=== PATIENT | male | born 1995 | race Caucasian/White ===

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

== ENCOUNTER 2021-11-26 20:25 | Day surgery (SDC) | payer OTHER, BC ==
[~2021-11-26] VITALS: Ht 193 cm; Wt 106.0 kg
[~2021-11-26 20:25] MED LIST changes: +AMOX TR-K CLV1 EAC1 PO; +HYCET 7.5 MG-3473 ML PO; +NORCO 5-325 TA1 EACH PO
--- NOTE | 2021-11-26 23:07 | NUR ---
11/26/21 2307 Rossy Spence 2256-PATIENT ARRIVED TO PACU AWAKE, SR. IVF INFUSING. DENIES PAIN OR NAUSEA. HOB ELEVATED. PER DR. FLOYD AND MILL WORK PATIENT TO STAY FOR 1 HR AND MEET CRITERIA TO DC HOME. 2307-PATIENT AWAKE DENIES PAIN OR NAUSEA. RA 98% RR EVEN.
--- NOTE | 2021-12-01 14:14 | HP ---
[facility] [address] [facility] [place], [place] [address] Signed ADMISSION DATE: 11/26/2021 TIME: 10 p.m. PROBLEM: Food impaction of the esophagus. HISTORY OF PRESENT ILLNESS: This 26-year-old white man presented to the emergency room having been eating a steak dinner at approximately 6 p.m. and noting sudden and acute inability to swallow with impaction of food in the esophagus. The patient has had some episodes to a lesser degree in the past, but never required medical intervention for this. He presented to the emergency room, was evaluated by Dr. Lockett. His initial thought was the food was impacted in the region of the suprasternal notch. He had no associated hematemesis, only persistent hypersalivation. A CT scan was ordered by Dr. Lockett of the neck. Images were done, but interpretation has yet to be read due to numerous logistical issues of the Radiology Department currently. The patient continues to have some hypersalivation and although no significant chest pain. He does feel that there is still obstruction of the esophagus. PAST MEDICAL HISTORY: Rather unremarkable, other than hay fever and some allergies to some food. REVIEW OF SYSTEMS: He denies any shortness of breath or actual chest pain. He does have excessive salivation currently. PHYSICAL EXAMINATION: GENERAL: A tall, fit, and healthy-appearing white man, who looks to be nontoxic and reasonably comfortable at this time. NECK: Shows no thyromegaly or cervical adenopathy and he has no crepitus. CHEST: Clear. HEART: Regular without murmur. LABORATORY STUDIES: Show a negative coronavirus test. White count is 9.0, hematocrit 46.5, platelets 233,000. Electrolytes are normal, creatinine 1.01. Electronically Signed By: DASHAWN FLOYD MD 12/01/21 1414 PATIENT NAME: JORDIN ADAIR HISTORY AND PHYSICAL DATE OF : [birth year] REPORT #: [id number] PHYSICIAN: DASHAWN FLOYD MD PCP: NO PRIMARY CARE PHYSICIAN REPORT IS CONFIDENTIAL AND NOT TO BE RELEASED WITHOUT AUTHORIZATION [facility] [address] [place], [place] [address] Signed I have reviewed his CT scan images of the neck, trachea appears to be midline. I do not certainly see the food foreign body, but this is an incomplete CT scan, as it has only cervical esophagus and does not completely go to the abdomen. ASSESSMENT AND PLAN: He has clinical findings of food impaction, probably steak, as reported at his evening meal. He has had obstruction for at least 4 hours clinically speaking. His stomach should largely have cleared by now even if the impacted food has not. I have recommended the patient and his mother, who accompanies him the plan for upper endoscopy to remove the impacted food or push it through, whichever is safest and able to be done. Additionally, biopsies will be taken, in particular to assess for eosinophilic esophagitis that is, as it is unlikely, this represents a stricture per se. The patient does not really have "heartburn," that he is aware of though, given his young age, he may not know fully just what symptoms would correspond to reflux or heartburn otherwise. The risks of bleeding, infection, perforation, and of course failure to fully remove the foreign body were reviewed in detail. He understands and wished to proceed. Dashawn Floyd MD JM/MODL /[id number] cc: Dr. Lockett Copies: ~ Electronically Signed By: DASHAWN FLOYD MD 12/01/21 1414 PATIENT NAME: JORDIN ADAIR HISTORY AND PHYSICAL DATE OF : [birth year] REPORT #: [id number] PHYSICIAN: DASHAWN FLOYD MD PCP: NO PRIMARY CARE PHYSICIAN REPORT IS CONFIDENTIAL AND NOT TO BE RELEASED WITHOUT AUTHORIZATION
--- NOTE | 2021-12-01 14:14 | OR ---
[facility] [address] [place], [place] [address] Signed DATE OF OPERATION: 11/26/2021 SURGEON: Dashawn Floyd MD TIME: 11 p.m. PREOPERATIVE DIAGNOSIS: Food impaction in esophagus (steak). POSTOPERATIVE DIAGNOSES: 1. Food impaction esophagus (steak). 2. Small polyps x2 proximal esophagus. 3. Felinization of esophagus consistent with the eosinophilic esophagitis. PROCEDURES: 1. Esophagogastroduodenoscopy with extraction of impacted food, foreign body. 2. Esophageal biopsy. 3. Excision of two small proximal esophageal polyps. ANESTHESIA: General endotracheal, Serge Mccauley CRNA. INDICATION: This 26-year-old white man presented to the emergency room, was evaluated by Dr. Lockett. At 6 p.m., he was eating steak and steak became impacted in the esophagus. Hypersalivation was noted. He has had dysphagia problems in the past, but no actual gastroesophageal reflux that he is aware of. The patient does have hay fever and other food allergies. He has been in the emergency room for several hours and a CT scan of the neck was ordered by Dr. Lockett. He clinically continues to have esophageal obstruction based on hypersalivation and so forth. He has been given IV fluids and is now to undergo upper endoscopy to explant or otherwise remove the impacted steak from the esophagus. The patient and his mother understand the risks of bleeding, infection, and perforation related to this procedure and wished to proceed. FINDINGS: Indeed there was impacted food in the fiw-um-ooxnjs esophagus. A combination of techniques were used to fully clear the esophagus, most dominantly three-prong grasper and subsequently Dexter Net. This allowed for explantation of extremely large bolus of steak about the size of a small mouth. There was distal esophagitis and midesophageal Electronically Signed By: DASHAWN FLOYD MD 12/01/21 1414 PATIENT NAME: JORDIN ADAIR OPERATIVE REPORT DATE OF : [birth year] REPORT #: [id number] PHYSICIAN: DASHAWN FLOYD MD PCP: NO PRIMARY CARE PHYSICIAN REPORT IS CONFIDENTIAL AND NOT TO BE RELEASED WITHOUT AUTHORIZATION [facility] [address] [place], [place] [address] Signed concentric rings (felinization) and I suspect strongly that his primary underlying diagnosis may well be eosinophilic esophagitis. Stomach and duodenum were normal. Good visualization of the bowel was not forthcoming in. DESCRIPTION OF PROCEDURE: The patient was brought to the endoscopy suite and placed in the supine position and given a general endotracheal anesthetic on the basis of increased hazard for airway problems with explantation of foreign body. In the supine position, a bite block was placed and using flexible Olympus upper endoscope, the esophagus was then intubated without problem. In the iwc-ad-[id number] part of the esophagus was an impacted food bolus consistent with steak as previously noted. Initial attempts at removal with a three-prong grasper; largely this only was able to morcellate the impacted food and not explanted fully on its own. On that basis, a Dexter Net was obtained and with various manipulations, portions of the impacted food was episodically removed. Re-intubation occurred several times. Ultimately, the bulk of the meat could be grasped with the snare, as it could not be pushed forward and it was explanted in total. The size of the impacted bolus was the size of a small mouth. Reintroduction of the scope allowed for good visualization of the esophagus and easy passage to the stomach itself. Rugal folds were normal, as was the pylorus. The scope was passed through into the duodenum, which was normal. Scope was withdrawn and the inflamed distal esophagus showed no evidence of Henry epithelium or actual neoplasm. Biopsies were taken of the distal esophagus. Further withdrawal showed felinization of the mid esophagus. Multiple biopsies were taken there as well. In the more proximal esophagus at about 22 cm were two small mucosal polyps, benign in appearance, but both excised with cold morcellation technique. Further withdrawal showed no other abnormalities. The scope was removed and the patient was subsequently and eventually extubated and taken to recovery room in good condition. CONCLUDING DIAGNOSIS: Food impaction (steak) in dfa-pa-hnlpia esophagus, most likely related to eosinophilic esophagitis. PLAN: We will initiate eosinophilic esophagitis treatment to include PPI medication daily as well as Flonase 2 puffs swallowed b.i.d. for 3 weeks with 1 week holiday (so as to avoid yeast esophagitis). Continuous use of PPI medication is recommended even on those drug holidays. He will see me back in the office in 4 to 6 weeks in order to review his progress and review his pathology reports. He will maintain a mechanical soft diet for the next 48 hours. Electronically Signed By: DASHAWN FLOYD MD 12/01/21 1414 PATIENT NAME: JORDIN ADAIR OPERATIVE REPORT DATE OF : [birth year] REPORT #: [id number] PHYSICIAN: DASHAWN FLOYD MD PCP: NO PRIMARY CARE PHYSICIAN REPORT IS CONFIDENTIAL AND NOT TO BE RELEASED WITHOUT AUTHORIZATION [address] [address] Signed MD MATTHEW Cantor/MODL /[id number] cc: Dr. Lockett Copies: ~ Electronically Signed By: DASHAWN FLOYD MD 12/01/21 1414 PATIENT NAME: MANAJORDIN OPERATIVE REPORT DATE OF : [birth year] REPORT #: [id number] PHYSICIAN: DASHAWN FLOYD MD PCP: NO PRIMARY CARE PHYSICIAN REPORT IS CONFIDENTIAL AND NOT TO BE RELEASED WITHOUT AUTHORIZATION
--- NOTE | 2021-12-05 17:45 | PATH ---
[facility] [address] [place], [place] [address] Signed SPECIMEN(S): A LOW ESOPHAGEAL BIOPSY AT 38 CM SPECIMEN(S): B MID ESOPHAGEAL BIOPSY SPECIMEN(S): C ESOPHAGEAL POLYP AT 22 CM SPECIMEN SOURCE: A. LOW ESOPHAGEAL BIOPSY AT 38 CM B. MID ESOPHAGEAL BIOPSY C. ESOPHAGEAL POLYP AT 22 CM CLINICAL HISTORY: Rule out eosinophilic esophagitis, removal of foreign body. FINAL PATHOLOGIC DIAGNOSIS: A. Low esophagus, 38 cm, biopsy: - The specimen consists predominantly of necrotic fibroconnective tissue, adipose tissue, viable skeletal muscle bundles, and bacterial colonies. - A mixed inflammatory infiltrate is identified. - Mucosal squamous epithelium with reactive changes is noted. - No polarizable foreign body material is seen under polarized light microscopy. B. Mid esophagus, biopsy: - The specimen consists predominantly of necrotic fibroconnective tissue, adipose tissue, viable skeletal muscle bundles, and bacterial colonies. - A mixed inflammatory infiltrate is identified. - Squamous epithelium fragments with an increased number of eosinophils are noted. - Polarizable foreign body material is seen under polarized light microscopy. - Mucosal eosinophilia, see comment. C. Esophagus, 22 cm, polypectomy: - Mucosal eosinophilia, see comment. COMMENT: Regarding specimen A, the viable squamous epithelial fragments do not demonstrate the presence of eosinophils. Regarding specimen B, the biopsies from the esophagus show a reactive appearing squamous epithelium that is infiltrated with an increased number of eosinophils. They are not as numerous as described in the literature to make the diagnosis of eosinophilic esophagitis and there are no eosinophilic microabscesses present. However, the number of eosinophils that is present is greater than that usually seen in gastroesophageal reflux disease. Because the changes of PATIENT NAME: JORDIN ADAIR PATHOLOGY DATE OF : [birth year] REPORT #: [id number] PHYSICIAN: TERESITA FERRELL PCP: NO PRIMARY CARE PHYSICIAN REPORT IS CONFIDENTIAL AND NOT TO BE RELEASED WITHOUT AUTHORIZATION [facility] [address] [place], [place] [address] Signed eosinophilic esophagitis can be patchy, this patient could well have eosinophilic esophagitis. No H. pylori are seen in the HE-stained sections. The possibility of pill esophagitis should be considered, given the presence of foreign body material. Please correlate these findings with the clinical presentation. Regarding specimen C, the sections through the biopsy show the presence of squamous epithelium that is infiltrated by large numbers of eosinophils. They do not number 20/high power field as in classical eosinophilic esophagitis and there are no eosinophilic microabscesses. There are more eosinophils than are typically seen in patients with GERD. This patient may have incomplete manifestations of eosinophilic esophagitis or GERD with increased eosinophils. The changes may also be produced by reactions to drugs, infections or allergies. TWK:em:C2NR MICROSCOPIC EXAMINATION: Histologic sections of all submitted blocks are examined by light microscopy. These findings, together with the gross examination, support the pathologic diagnosis. GROSS DESCRIPTION: Three specimens are received in three containers, labeled "GB." A. The specimen, labeled "GB, 1," and designated on the requisition "lower esophagus biopsy 38 cm," is received in formalin and consists of multiple espinosa-white soft tissue fragments that measure less than 0.1 up to 0.5 cm in greatest dimension. The specimen is entirely submitted in cassette (A1). B. The specimen, labeled "GB, 2," and designated on the requisition "mid esophagus biopsy," is received in formalin and consists of multiple espinosa-white soft tissue fragments that measure less than 0.1 up to 0.4 cm in greatest dimension. The specimen is entirely submitted in cassette (B1). C. The specimen, labeled "GB, 3," and designated on the requisition "esophagus polypectomy 22 cm," is received in formalin and consists of multiple espinosa-white soft tissue fragments that measure less than 0.1 up to 0.7 cm in greatest dimension. The specimen is entirely submitted in cassette (C1). AI (under the direct supervision of a pathologist) The Gross Description was prepared using a voice recognition system. The report PATIENT NAME: JORDIN ADAIR PATHOLOGY DATE OF : [birth year] REPORT #: [id number] PHYSICIAN: TERESITA FERRELL PCP: NO PRIMARY CARE PHYSICIAN REPORT IS CONFIDENTIAL AND NOT TO BE RELEASED WITHOUT AUTHORIZATION [facility] [address] [place] [address] Signed was reviewed for accuracy; however, sound-alike word errors, addition and/or deletions may occur. If there is any question about this report, please contact Client Services. PERFORMING LABORATORY: The technical component was performed by [facility], [address] [place] [address] (CLIA# [id number]). The professional interpretation was performed by [facility], [facility], [address] [place] [address] (IA#: [id number]). Diagnostician: Terrell Stapleton MD Pathologist Electronically Signed 12/05/2021 Copies: ~ PATIENT NAME: JORDIN ADAIR PATHOLOGY DATE OF : [birth year] REPORT #: [id number] PHYSICIAN: TERESITA PATHOLOGY PCP: NO PRIMARY CARE PHYSICIAN REPORT IS CONFIDENTIAL AND NOT TO BE RELEASED WITHOUT AUTHORIZATION
== END 2021-11-26 23:56 | disposition home or self-care (01) ==
LOC: ED 20:25 → MS 20:29 → DS 22:16 → MS 22:16 → DS 23:56
PROVIDERS: ATTEND Surgery
PROC: 0DB38ZX Excision of Lower Esophagus, Via Natural or Artificial Opening Endoscopic, Diagnostic (ICD-10-PCS; 2021-11-26)
PROC: 0DB18ZX Excision of Upper Esophagus, Via Natural or Artificial Opening Endoscopic, Diagnostic (ICD-10-PCS; 2021-11-26)
PROC: 0DC58ZZ Extirpation of Matter from Esophagus, Via Natural or Artificial Opening Endoscopic (ICD-10-PCS; principal; 2021-11-26 22:30)
DX: T18.128A Food in esophagus causing other injury, initial encounter (principal); D72.10 Eosinophilia, unspecified; K22.81 Esophageal polyp; K20.0 Eosinophilic esophagitis; Z20.822 Contact with and (suspected) exposure to COVID-19
CPT/HCPCS: 00731; 36415; 70491; 80053; 85025; 87502; 96374; 99284-25; C9803; J1100; J1610; J1885; J2001; J2405; J3010; Q9967; U0003

== ENCOUNTER 2024-08-22 13:08 | Day surgery (SDC) | payer OTHER ==
[~2024-08-22] VITALS: Ht 193 cm; Wt 113.6 kg
--- NOTE | ~2024-08-22 | OR ---
[facility] [address] [place], [place] [address] Draft DATE OF OPERATION: 09/01/2024 SURGEON: Dashawn Floyd MD PREOPERATIVE DIAGNOSIS: Recurrent dysphagia, distant history of food bolus impaction in 2021, with confirmed findings of the eosinophilic esophagitis. POSTOPERATIVE DIAGNOSIS: Findings consistent with eosinophilic esophagitis with low-grade distal stricture. Midesophageal felinization and poor flap valve. PROCEDURE: Esophagogastroduodenoscopy with biopsy. ANESTHESIA: Intravenous sedation, fentanyl 100 mcg and Versed 8 mg. INDICATION: This 29-year-old white man is a patient of KIMBERLY Segura. He is developed recurrent dysphagia. Quite notably, he had a food bolus impaction three years ago in 2021. He was treated with PPI medication and Flonase, which was prescribed and was beneficial, but drifted away from maintenance of that therapy. He has been identified as having recurrent dysphagia at this time. He is referred by KIMBERLY Ruvalcaba for consideration of upper endoscopy and re-initiation of treatment plan. He understands risk of bleeding, infection, and perforation related upper endoscopy and wished to proceed. FINDINGS: Upper endoscopy clearly showed findings highly consistent with the eosinophilic esophagitis including felinization of the esophagus in the midportion and a low-grade stricture of the distal esophagus. A poor flap valve was noted. The extent of which reflux contributes to his problem is uncertain. He did not have a thickened stricture nor sign of neoplasm, varices or Henry's epithelium. The stomach and duodenum were normal. CLOtest was negative 15 minutes post procedure. DESCRIPTION OF PROCEDURE: The patient was brought to the endoscopy suite, given topical lidocaine hypopharyngeal anesthesia and placed in lateral decubitus position. A bite block was placed. After satisfactory intravenous sedation, an Olympus video upper endoscope was passed in the PATIENT NAME: JORDIN ADAIR OPERATIVE REPORT DATE OF : 97 REPORT #: [id number] PHYSICIAN: DASHAWN FLOYD MD PCP: MARYBETH CHANG NP REPORT IS CONFIDENTIAL AND NOT TO BE RELEASED WITHOUT AUTHORIZATION [facility] [address] [place], [place] [address] Draft hypopharynx. The vocal cords appeared normal. Scope was advanced to the esophagus without problem. In the mid and distal portions were findings highly suggestive of the eosinophilic esophagitis including felinization and low-grade shelf like stricture. Scope was advanced into the stomach. Stomach was found to be normal. There was no sign of bile reflux or gastritis. Particularly, pylorus was normal. Scope was passed through in the duodenum, which was normal. Biopsies were taken of the duodenum. The scope was withdrawn and biopsies taken of the antrum for both colon WARREN and pathologic testing. Retroflexed view of the GE junction showed a poor flap valve, but no large hiatal hernia proper. The scope was withdrawn. A biopsy was then taken of the distal esophagus and subsequently mid esophagus. The scope was withdrawn and removed. The patient was taken to the recovery room in good condition. CONCLUDING DIAGNOSIS: Most likely, his dysphagia is related to low-grade stricture of the distal esophagus secondarily related to the eosinophilic esophagitis. PLAN: We will initiate Flonase 1 squirt p.o. daily swallowed x3 weeks with one week rest and re-initiate PPI medication, Prilosec 20 mg p.o. daily. He will return to see me in approximately 6-8 weeks. If he has problems in the meantime, he will let me know. MD MATTHEW Cantor/NIKI /[id number] cc: Marybeth Chang Copies: ~ PATIENT NAME: JORDIN ADAIR NAKUL OPERATIVE REPORT DATE OF : [birth year] REPORT #: [id number] PHYSICIAN: DASHAWN FLOYD MD PCP: MARYBETH CHANG NP REPORT IS CONFIDENTIAL AND NOT TO BE RELEASED WITHOUT AUTHORIZATION
[~2024-08-22 13:08] MED LIST changes: +VITAMIN B COMP1 EACH PO; +VITAMIN C1000 MG PO; +VITAMIN D350 MCG PO; +ZYRTEC10 M3 PO
[2024-08-22 13:33] VITALS: BP 132/77
[2024-08-22] MEDS ORDERED: MIDAZOLAM HCL 5 MG/5 ML VIAL ONE ×2 (14:06→14:34)
[2024-08-22] MEDS ORDERED: fentaNYL citrate 100 MCG/2 ML VIAL ONE (14:07)
--- NOTE | 2024-08-22 14:59 | NUR ---
08/22/24 14[address] [facility] 1450: PT ARRIVED TO PACU VIA STRETCHER. PT AWAKE AND TALKING. PT ON RA AT THIS TIME. 1458: PT REMAINS ON RA. STATED, "I WANT TO GO HOME."
[2024-08-22 15:27] VITALS: BP 126/71
--- NOTE | 2024-08-26 17:34 | PATH ---
[facility] [address] [place], [place] [address] Signed SPECIMEN(S): A DUODENAL BIOPSY SPECIMEN(S): B ANTRUM BIOPSY SPECIMEN(S): C DISTAL ESOPHAGEAL BIOPSY SPECIMEN(S): D MIDDLE ESOPHAGEAL BIOPSY SPECIMEN SOURCE: A. DUODENAL BIOPSY B. ANTRUM BIOPSY C. DISTAL ESOPHAGEAL BIOPSY D. MIDDLE ESOPHAGEAL BIOPSY CLINICAL HISTORY: Eosinophilic esophagitis FINAL PATHOLOGIC DIAGNOSIS: A. Duodenum, biopsy: - Duodenal mucosa with normal villous architecture. - Negative for acute, chronic, and granulomatous inflammation. - Negative for dysplasia and malignancy. B. Stomach, antrum, biopsy: - Antral-type mucosa with mild superficial vascular congestion. - Negative for chronic, acute, and active inflammation. - No H. pylori-like organisms identified on routine HE-stained histologic sections. - Negative for intestinal metaplasia, dysplasia, and malignancy. C. Distal esophagus, biopsy: - Ulcerated esophageal mucosa with acute and eosinophilic intraepithelial inflammation and chronic inflammation in the lamina propria. - Eosinophils average 14 per high-power field. - Eosinophilic microabscesses are present towards the epithelial surface, in addition to acute inflammatory cells. - PAS stain is negative for yeast and fungal organisms. - No glandular epithelium identified. - Negative for dysplasia and malignancy. D. Middle esophagus, biopsy: - Esophageal mucosa with eosinophilic inflammation. - Eosinophils average 16 per high-power field. - Eosinophilic microabscesses are present towards the epithelial surface. - Features are consistent with the clinical impression of eosinophilic PATIENT NAME: MANAJORDIN PATHOLOGY DATE OF : [birth year] REPORT #: [id number] PHYSICIAN: TERESITA PATHOLOGY PCP: AMINAH REAVES NP REPORT IS CONFIDENTIAL AND NOT TO BE RELEASED WITHOUT AUTHORIZATION [facility] [address], [place] [address] Signed esophagitis. - PAS stain is negative for yeast and fungal organisms. - Negative for dysplasia and malignancy. SDL MICROSCOPIC EXAMINATION: Histologic sections of all submitted blocks are examined by light microscopy. These findings, together with the gross examination, support the pathologic diagnosis. GROSS DESCRIPTION: A. The specimen, labeled and designated "Banister, duodenal biopsy," is received in formalin and consists of two espinosa soft tissue fragments, ranging from 0.4-0.5 cm. Entirely submitted in (A1). B. The specimen, labeled and designated "Banister, antrum biopsy," is received in formalin and consists of two espinosa soft tissue fragments, ranging from 0.3-0.6 cm. Entirely submitted in (B1). C. The specimen, labeled and designated "Banister, distal esophageal biopsy," is received in formalin and consists of two espinosa soft tissue fragments, ranging from 0.2-0.3 cm. Entirely submitted in (C1). D. The specimen, labeled and designated "Banister, middle esophageal biopsy," is received in formalin and consists of four espinosa soft tissue fragments, ranging from 0.1-0.4 cm. Entirely submitted in (D1). VB (under the direct supervision of a pathologist) The Gross Description was prepared using a voice recognition system. The report was reviewed for accuracy; however, sound-alike word errors, addition and/or deletions may occur. If there are any questions about this report, please contact Client Services. ADDITIONAL NOTES: Immunohistochemical and/or in situ hybridization studies if performed in this case included appropriate positive controls that reacted as expected. This test was developed and its performance characteristics determined by [facility]. It has not been cleared or approved by the U.S. Food and Drug Administration. The FDA has determined that such clearance or approval is not necessary. This test is used for clinical purposes. It should not be regarded as investigational or for research. [facility] is certified under the Clinical Laboratory Improvement PATIENT NAME: JORDIN ADAIR PATHOLOGY DATE OF : [birth year] REPORT #: [id number] PHYSICIAN: TERESITA FERRELL PCP: AMINAH REAVES NP REPORT IS CONFIDENTIAL AND NOT TO BE RELEASED WITHOUT AUTHORIZATION [address] [address] Signed Amendments of 1988 (CLIA) as qualified to perform high complexity clinical laboratory testing. PERFORMING LABORATORY: Technical component was performed by [facility], [address] [place] [id number] (CLIA# [id number]). Professional interpretation was performed by [facility], [address] [place] [id number] (CLIA#: [id number]). Diagnostician: Nati Georges MD Pathologist Electronically Signed 08/26/2024 Copies: ~ PATIENT NAME: JORDIN ADAIR PATHOLOGY DATE OF : [birth year] REPORT #: [id number] PHYSICIAN: TERESITA PATHOLOGY PCP: AMINAH REAVES NP REPORT IS CONFIDENTIAL AND NOT TO BE RELEASED WITHOUT AUTHORIZATION
== END 2024-08-22 15:11 | disposition home or self-care (01) ==
LOC: OPS 13:08 → DS 13:09 → OPS 13:30 → DS 14:45 → OPS 14:45
PROVIDERS: ATTEND Surgery
PROC: 0DB68ZX Excision of Stomach, Via Natural or Artificial Opening Endoscopic, Diagnostic (ICD-10-PCS; 2024-08-22)
PROC: 0DB28ZX Excision of Middle Esophagus, Via Natural or Artificial Opening Endoscopic, Diagnostic (ICD-10-PCS; 2024-08-22)
PROC: 0DB38ZX Excision of Lower Esophagus, Via Natural or Artificial Opening Endoscopic, Diagnostic (ICD-10-PCS; 2024-08-22)
PROC: 0DB98ZX Excision of Duodenum, Via Natural or Artificial Opening Endoscopic, Diagnostic (ICD-10-PCS; principal; 2024-08-22 14:45)
DX: K20.0 Eosinophilic esophagitis (principal); K22.2 Esophageal obstruction; J45.909 Unspecified asthma, uncomplicated; Z79.899 Other long term (current) drug therapy
CPT/HCPCS: 99153; G0500; J2250; J3010